=== PATIENT | male | born 1995 | race African-American/Black ===

== ENCOUNTER 2017-01-09 23:11 | Emergency (ER) | payer OTHER ==
[~2017-01-09] VITALS: Ht 175.3 cm; Wt 94.8 kg
[2017-01-10 02:11] VITALS: BP 132/82
== END 2017-01-10 02:12 ==
LOC: EME 23:11
DX: S00.12XA Contusion of left eyelid and periocular area, initial encounter (principal); W50.0XXA Accidental hit or strike by another person, initial encounter; Z94.7 Corneal transplant status
CPT/HCPCS: 70480; 99281; 99284